=== PATIENT | male | born 1970 | race Caucasian/White ===

== ENCOUNTER 2016-11-26 12:38 | Emergency (ER) | payer MEDICAID, OTHER ==
[~2016-11-26] VITALS: Ht 172.7 cm; Wt 77.0 kg
[2016-11-26] MEDS ORDERED: HYDROCODONE/APAP 7.5/325MG 1 TAB TABLET PO ONE ×2 (16:15→19:00)
[2016-11-26 16:43] LABS: HEMATOCRIT. 42.4 % (42.0-52.0); HEMOGLOBIN. 14.1 g/dL (14.0-18.0); MEAN CORPUSCULAR VOLUME 92.9 fL (80.0-94.0); MEAN PLATELET VOLUME 7.4 fl (7.4-10.4); PLATELET 259 x1000/uL (130-400); RED BLOOD CELL COUNT 4.56 mill/uL (4.7-6.1); RED CELL DISTRIBUTION WIDTH 14.6 % (11.6-14.6)
[2016-11-26 16:47] LABS: PROTHROMBIN TIME 10.6 sec
[2016-11-26 16:55] LABS: CARBON DIOXIDE 31 mEq/L (21-32); CHLORIDE 101 mEq/L (98-107)
[2016-11-26 18:20] LABS: PLATELET ESTIMATE NORMAL
[2016-11-26 18:26] LABS: CLARITY URINE CLEAR (CLEAR); COLOR URINE DARK YELLOW (YELLOW); GLUCOSE URINE NEGATIVE (NEGATIVE); KETONES URINE TRACE (NEGATIVE); LEUKOCYTE ESTERASE URINE NEGATIVE (NEGATIVE); NITRITE URINE NEGATIVE (NEGATIVE); OCCULT BLOOD URINE NEGATIVE (NEGATIVE); PH URINE 5.5 (4.5-8.0); PROTEIN URINE NEGATIVE (NEGATIVE); SPECIFIC GRAVITY URINE 1.017 (1.005-1.030); UROBILINOGEN URINE 0.2 E.U./dL (0.2-1.0)
[2016-11-26 19:30] VITALS: BP 148/78
== END 2016-11-26 20:00 | disposition home or self-care (01) ==
LOC: ER 13:19
DX: S40.012A Contusion of left shoulder, initial encounter (principal); S00.03XA Contusion of scalp, initial encounter; J90 Pleural effusion, not elsewhere classified; F17.200 Nicotine dependence, unspecified, uncomplicated; F12.10 Cannabis abuse, uncomplicated; W01.0XXA Fall on same level from slipping, tripping and stumbling without subsequent striking against object, initial encounter; Y93.89 Activity, other specified; Y92.89 Other specified places as the place of occurrence of the external cause; Y99.8 Other external cause status
CPT/HCPCS: 36415; 70450; 71020; 72125; 73060; 80053; 81003; 85025; 85610; 99285; Z7610

== ENCOUNTER → 2019-12-27 | Outpatient (CLI) | payer MEDICAID ==
[~2019-12-27] MED LIST: BETDL TP; FAMO40TA7 PO; OMEP40CA12 PO; POLY17PO28 PO; PROP10DR4 BOTHEYE; TIOT4MIS3 IH
== END | disposition home or self-care (01) ==
LOC: LAB 11:50
PROVIDERS: ATTEND Internal Medicine Gastroenterology
DX: Z01.812 Encounter for preprocedural laboratory examination (principal); Z20.828 Contact with and (suspected) exposure to other viral communicable diseases
CPT/HCPCS: 87635

== ENCOUNTER 2019-12-31 07:51 | Day surgery (SDC) | payer MEDICAID ==
[~2019-12-31] VITALS: Ht 172.7 cm; Wt 70.3 kg
[2019-12-31] MEDS ORDERED: LACTATED RINGERS 1,000 ML IV SCH (08:30)
[2019-12-31 10:36] LABS: CHLORIDE 102 mEq/L (98-107)
[2019-12-31] MEDS ORDERED: PROPOFOL 200MG/20ML VIAL IV ONE ×2 (11:27→12:37)
[2019-12-31] MEDS ORDERED: LIDOCAINE HCL/PF 1% 10 MG/ML 5ML VIAL ONE (11:28)
[2019-12-31] MEDS ORDERED: SIMETHICONE 40 MG/0.6 ML 30ML ONE (11:59)
[2019-12-31] MEDS ORDERED: ONDANSETRON HCL 4MG/2ML INJ IV PRN (13:00)
[2019-12-31] MEDS ORDERED: METOCLOPRAMIDE HCL 10MG/2ML VIAL IV PRN (13:00)
== END 2019-12-31 14:35 | disposition home or self-care (01) ==
LOC: OR 07:51
PROVIDERS: ATTEND Internal Medicine Gastroenterology
DX: R10.9 Unspecified abdominal pain (principal); K59.00 Constipation, unspecified; G71.11 Myotonic muscular dystrophy; K52.9 Noninfective gastroenteritis and colitis, unspecified; R13.10 Dysphagia, unspecified; R14.0 Abdominal distension (gaseous); G89.29 Other chronic pain; K63.89 Other specified diseases of intestine; K31.89 Other diseases of stomach and duodenum; K29.50 Unspecified chronic gastritis without bleeding; K63.5 Polyp of colon; K62.1 Rectal polyp; Z80.0 Family history of malignant neoplasm of digestive organs; E78.00 Pure hypercholesterolemia, unspecified; E03.9 Hypothyroidism, unspecified; M19.90 Unspecified osteoarthritis, unspecified site; F41.9 Anxiety disorder, unspecified; F32.9 Major depressive disorder, single episode, unspecified; Z79.899 Other long term (current) drug therapy; Z98.890 Other specified postprocedural states
CPT/HCPCS: 36415; 43239; 45380; 45385; 71045; 80048; 82962; 88305; 93005; J2704; J3490

== ENCOUNTER 2023-02-21 21:30 | Emergency (ER) | payer MEDICAID ==
[~2023-02-21] VITALS: Ht 170.2 cm; Wt 51.0 kg
[~2023-02-21 21:30] MED LIST changes: -OMEP40CA12 PO; +OMEP40CA20 PO; -POLY17PO28 PO; +POLY17PO43 PO
[2023-02-21 21:49] VITALS: BP 98/68; PULSE 89; RESP 18; TEMP 98.2; O2SAT 98
== END 2023-02-21 23:19 | disposition home or self-care (01) ==
LOC: ER 21:38
DX: K94.23 Gastrostomy malfunction (principal)
CPT/HCPCS: 43762; 99284; Z7610

== ENCOUNTER 2025-02-24 10:25 | Emergency (ER) | payer MEDICAID ==
[~2025-02-24] VITALS: Ht 172.7 cm; Wt 72.0 kg
[2025-02-24 10:42] VITALS: O2SAT 100
[2025-02-24 12:16] VITALS: BP 118/62; PULSE 62; RESP 16; TEMP 37; O2SAT 100
== END 2025-02-24 12:17 | disposition home or self-care (01) ==
LOC: ER 10:25
DX: Z46.6 Encounter for fitting and adjustment of urinary device (principal); I10 Essential (primary) hypertension; F41.9 Anxiety disorder, unspecified; Z79.899 Other long term (current) drug therapy; Z98.890 Other specified postprocedural states
CPT/HCPCS: 99282